=== PATIENT | female | born 1985 | race Caucasian/White ===

== ENCOUNTER 2018-07-29 08:52 | Emergency (ER) | payer OTHER ==
[~2018-07-29] VITALS: Ht 170.2 cm; Wt 74.8 kg
[2018-07-29] MEDS ORDERED: ERGO400 PO (09:37)
[2018-07-29] MEDS ORDERED: PYRI100 PO (09:38)
[2018-07-29] MEDS ORDERED: IRON150C PO (09:38)
[2018-07-29] MEDS ORDERED: Ciloxan5 ML BOTHEYES (12:22)
== END 2018-07-29 12:38 | disposition home or self-care (01) ==
LOC: ER 08:52
DX: H18.893 Other specified disorders of cornea, bilateral (principal); Z79.899 Other long term (current) drug therapy; Z87.891 Personal history of nicotine dependence

== ENCOUNTER 2020-08-11 03:22 | Emergency (ER) | payer OTHER ==
[~2020-08-11 03:22] MED LIST: Ciloxan5 ML BOTHEYES; ERGO400 PO; IRON150C PO; PYRI100 PO
[2020-08-11 06:35] LABS: BASOPHILS ABSOLUTE AUTO 0.05 K/mm3 (0.00-0.23); BASOPHILS PERCENT AUTO 1 % (0-2); EOSINOPHILS ABSOLUTE AUTO 0.08 K/mm3 (0.00-0.68); EOSINOPHILS PERCENT AUTO 1 % (0-6); Hematocrit 35.5 % (33.0-51.0); Hemoglobin 12.6 g/dL (11.5-16.0); IMMATURE GRAN ABSOLUTE AUTO 0.01 K/mm3 (0.00-0.10); IMMATURE GRAN PERCENT AUTO 0 % (0-1); LYMPHOCYTES ABSOLUTE AUTO 2.77 K/mm3 (0.84-5.20); LYMPHOCYTES PERCENT AUTO 44 % (21-46); MONOCYTES ABSOLUTE AUTO 0.41 K/mm3 (0.16-1.47); MONOCYTES PERCENT AUTO 7 % (4-13); Mean Corpuscular HGB 32.1 pg (26.0-34.0); Mean Corpuscular HGB Conc 35.5 g/dL (31.5-36.5); Mean Corpuscular Volume 91 fL (80-100); Mean Platelet Volume 11.8 fL (9.1-12.4); NEUTROPHILS ABSOLUTE AUTO 2.94 K/mm3 (1.96-9.15); NEUTROPHILS PERCENT AUTO 47 % (41-73); Platelet Count 200 K/mm3 (150-400); RDW Coefficient Variation 11.7 % (11.7-14.2); RDW Standard Deviation 38.7 fL (35.1-46.3); Red Blood Cell Count 3.92 M/mm3 (3.80-5.20); White Blood Cell Count 6.26 K/mm3 (4.00-11.30)
[2020-08-11 06:49] LABS: Anion Gap 6 mmol/L (6-16); Blood Urea Nitrogen 9 mg/dL (8-24); Bun/Creatinine Ratio 13.7 (12.0-20.0); CO2, Blood 28 mmol/L (21-32); Calcium, Blood 8.4 mg/dL (8.5-10.1); Chloride, Blood 109 mmol/L (98-108); Creatinine, Blood 0.66 mg/dL (0.40-1.00); Glomerular Filtration Rate >60 (60-); Glucose, Blood 79 mg/dL (70-99); Potassium, Blood 3.9 mmol/L (3.5-5.5); Sodium, Blood 143 mmol/L (136-145); Troponin I <0.015 ng/mL (0.000-0.040)
== END 2020-08-11 06:30 | disposition home or self-care (01) ==
LOC: ER 03:22
PROVIDERS: Emergency Medicine
DX: R07.9 Chest pain, unspecified (principal); R06.00 Dyspnea, unspecified; Z79.899 Other long term (current) drug therapy
CPT/HCPCS: 71045; 80048; 84484; 84703; 85025; 85379; 93005; 93010; 96374; 96375; 99284-25; J1170; J2405

== ENCOUNTER 2022-02-16 11:47 | Emergency (ER) | payer OTHER ==
[~2022-02-16] VITALS: Ht 172.7 cm; Wt 77.1 kg
== END 2022-02-16 14:49 | disposition home or self-care (01) ==
LOC: ER 11:47
DX: S93.401A Sprain of unspecified ligament of right ankle, initial encounter (principal); X50.1XXA Overexertion from prolonged static or awkward postures, initial encounter; Z79.899 Other long term (current) drug therapy; Z87.891 Personal history of nicotine dependence
CPT/HCPCS: 73610